=== PATIENT | male | born 1990 | race African-American/Black ===

== ENCOUNTER 2024-10-28 14:19 | Emergency (ER) | payer BC ==
[~2024-10-28] VITALS: Ht 188 cm; Wt 113.0 kg
[2024-10-28 14:40] VITALS: BP 144/94
[2024-10-28 14:45] VITALS: BP 142/91
[2024-10-28 15:00] VITALS: BP 142/91
[2024-10-28 15:14] LABS: BASO% 0.9 % (0-3); EOS% 3.6 % (0-8); HEMATOCRIT 40.6 % (39.0-50.0); IMMATURE GRANULOCYTES 0.1 % (0.0-5.0); LYMPH% 24.3 % (15-41); MEAN CELL VOLUME 85.3 fL CALC (80.0-100.0); MEAN CORPUSCULAR HGB 29.4 pG CALC (26.0-32.0); MEAN CORPUSCULAR HGB CONC 34.5 g/dL CAL (32.0-36.0); MONO% 9.7 % (2-13); NEUT# 4.74 thou/uL (1.82-7.42); NEUT% 61.4 % (42-76); RED BLOOD COUNT 4.76 mill/uL (4.70-6.10); RED CELL DISTRI WIDTH 11.7 % (11.5-15.5)
[2024-10-28 15:15] VITALS: BP 139/91
[2024-10-28 15:23] LABS: ALBUMIN 4.3 g/dL (3.2-5.0); BILIRUBIN, TOTAL 0.5 mg/dL (0.2-1.3); CREATININE 0.9 mg/dL (0.7-1.3); POTASSIUM 4.3 mmol/l (3.5-5.1); TOTAL PROTEIN 7.3 g/dL (6.3-8.2)
[2024-10-28 15:45] VITALS: BP 138/90
[2024-10-28 15:53] VITALS: BP 138/90
== END 2024-10-28 16:15 | disposition home or self-care (01) | DRG 151 ==
LOC: ED 14:19
PROVIDERS: Nurse Practitioner
DX: R04.0 Epistaxis (principal)